=== PATIENT | female | born 1975 | race Caucasian/White ===

== ENCOUNTER 2017-02-18 09:44 | Outpatient (CLI) | payer OTHER ==
[2017-02-18 10:07] LABS: APPEARANCE,URINE Clear (CLEAR); COLOR,URINE Yellow (YELLOW); OCCULT BLOOD,URINE 2+ (NEGATIVE); UROBILINOGEN URINE 0.2 Eu (0.2-1.0)
[2017-02-18 10:48] LABS: AMORPHOUS SEDIMENT,UR FEW (NEGATIVE)
== END 2017-02-18 09:45 ==
LOC: LAB 09:44
PROVIDERS: ATTEND Internal Medicine
DX: R30.0 Dysuria (principal); R31.9 Hematuria, unspecified
CPT/HCPCS: 81002; 87086; 87186